=== PATIENT | male | born 1945 ===

== ENCOUNTER → 2018-04-12 14:08 | Outpatient (REF) | payer MEDICARE, OTHER, SELFPAY | LOC: LAB 14:08 | PROVIDERS: Visit Provider Family Medicine | DX: E29.1 Testicular hypofunction (principal) | CPT/HCPCS: 36415; 84403 ==

== ENCOUNTER → 2018-06-07 20:42 | Outpatient (REF) | payer MEDICARE, OTHER, SELFPAY | LOC: LAB 20:42 | PROVIDERS: Visit Provider Family Medicine | DX: E29.1 Testicular hypofunction (principal) | CPT/HCPCS: 36415; 84403 ==